=== PATIENT | female | born 1990 | race Caucasian/White ===

== ENCOUNTER 2016-09-23 16:46 | Emergency (ER) | payer OTHER ==
[2016-09-23 17:34] LABS: #Basophils 0.1 thou/uL (0.0-0.2); #Eosinphils 0.1 thou/uL (0.0-0.7); #Lymphocytes 2.4 thou/uL (1.20-3.40); #Monocytes 0.6 thou/uL (0.11-0.59); #Neutrophils 4.7 thou/uL (1.40-6.50); %Basophils 0.9 % (0.0-1.0); %Eosinophils 1.2 % (0.0-10.0); %Lymphocytes 30.6 % (21.0-51.0); %Monocytes 8.1 % (0.0-10.0); %Neutrophils 59.3 % (42.0-75.0); Hemoglobin 13.2 g/dL (12.0-16.0); Mean Corpuscular HGB CONC 33.1 g/dL (32.0-36.0); Mean Corpuscular Hemoglobin 30.5 pg (27.0-31.0); Mean Corpuscular Volume 92.3 fl (81.0-99.0); Mean Platelet Volume 9.5 fL (7.4-10.4); Platelet Count 239 thou/uL (130-400); RBC Distribution Width 12.7 % (11.5-14.5); Red Blood Cell (RBC) Count 4.33 mill/uL (4.20-5.40); White Blood Cell (WBC) Count 7.9 thou/uL (4.8-10.8)
[2016-09-23 17:44] LABS: PTT 26.5 SEC (22.9-36.1)
[2016-09-23 17:51] LABS: ALT (SGPT) 35 U/L (0-55); AST (SGOT) 23 U/L (5-34); Albumin 3.9 g/dL (3.5-5.0); Alkaline Phosphatase 56 U/L (40-150); Anion Gap 18 mmol/L (10-20); BUN (Urea Nitrogen) 7 mg/dL (7.0-18.7); Bilirubin, Total 0.6 mg/dL (0.2-1.2); Calc. Creatinine Clearance 0 mL/min (70-130); Calcium 9.3 mg/dL (7.8-10.44); Carbon Dioxide 20 mmol/L (22-29); Chloride 105 mmol/L (98-107); Estimated GFR-MDRD Greater than 90; Globulin 2.9 g/dL (2.4-3.5); Glucose 100 mg/dL (70-105); Potassium 4.1 mmol/L (3.5-5.1); Protein, Total 6.8 g/dL (6.0-8.3); Sodium 139 mmol/L (136-145)
--- NOTE | 2016-09-23 19:21 | ERRECORD ---
[facility] EMERGENCY RECORD HPI VAGINAL BLEEDING (17:12 SHAN) CHIEF COMPLAINT: Patient presents for evaluation of vaginal bleeding. HISTORIAN: History provided by patient, 8 weeks per patient; no tests yet done. TIME COURSE: Sudden onset of symptoms. ROS CONSTITUTIONAL: Negative constitutional review of systems, Historian denies chills, denies fever. (17:12 SHAN) EYES: Negative eye review of systems. (17:12 SHAN) ENT: Negative ears, nose, throat review of systems. (17:12 SHAN) CARDIOVASCULAR: Negative cardiovascular review of systems, Historian denies chest pain, denies palpitations. (17:12 SHAN) RESPIRATORY: Negative respiratory review of systems, Historian denies cough, denies shortness of breath. (17:12 SHAN) GI: Negative gastrointestinal review of systems, Historian denies abdominal pain, denies constipation, denies diarrhea. (17:12 SHAN) GENITOURINARY FEMALE: vaginal bleeding,. (17:17 SHAN) MUSCULOSKELETAL: Negative musculoskeletal review of systems. (17:12 SHAN) SKIN: Negative skin review of systems. (17:12 SHAN) NEUROLOGIC: Negative neurologic review of systems. (17:12 SHAN) ENDOCRINE: Negative endocrine review of systems. (17:12 SHAN) HEMO/LYMPHATIC: Normal hematologic/lymphatic system review. (17:12 SHAN) PSYCHIATRIC: Negative psychiatric review of systems. (17:12 SHAN) NOTES: All other ROS is negative except as listed in HPI. (17:12 SHAN) PAST MEDICAL HISTORY MEDICAL HISTORY: No past medical history. (FriSep 23, 2016 16:57 MDEB) FEMALE SURGICAL HISTORY: Patient has no surgical history. (FriSep 23, 2016 16:57 MDEB) PSYCHIATRIC HISTORY: Notes: DEPRESSION. (FriSep 23, 2016 16:57 MDEB) SOCIAL HISTORY: Patient denies alcohol use, Patient denies drug use, Patient currently uses tobacco, smokes cigarettes, daily, Patient smokes 1 pack per day. (FriSep 23, 2016 16:57 MDEB) NOTES: I have reviewed and agree with the PMH/PSxH/FamHx/SocHx obtained by the nurse. (17:12 SHAN) KNOWN ALLERGIES No Known Drug Allergies CURRENT MEDICATIONS (19:27 BGAL) : CAPSULE : Strength - 10 mg iron-400 mcg : ORAL Patient Dose: Unknown. &a-1R&a+25V*p+0X*a6277M*c202B*c15G*c2P*p-0X&a-25V&a+1R Name: Marielle Dumont : 1990 F26 MedRec: [id number] AcctNum: [id number] Prepared: FriSep 23, 2016 19:39 by Interface Page 1 of 3 pMD [facility] EMERGENCY RECORD VITAL SIGNS (16:53 MDEB) VITAL SIGNS: BP: 160/97, Pulse: 126, Resp: 20, Temp: 98.4 (Oral), Pain: 0, O2 sat: 97 on Room Air, Time: 09/23/2016 16:53. PHYSICAL EXAM (17:12 SHAN) CONSTITUTIONAL: Vital signs reviewed, Patient appears non toxic, Patient alert and oriented to person, place and time, Pt is in no apparent distress. HEAD: Head exam included findings of head atraumatic, normocephalic. EYES: Eye exam included findings of eyelids normal to inspection, Pupils equally round and reactive to light, Extraocular muscles intact. ENT: ENT exam normal, Nose exam normal, no nasal deformity, no bleeding from nares, Pharynx exam normal, Mouth exam normal, mucous membranes moist. NECK: Neck exam included findings of normal range of motion, Trachea midline. RESPIRATORY CHEST: Respiratory and chest exam normal, Breath sounds clear, No wheezing, No rales, Chest exam included findings of chest movement symmetrical, Chest expansion equal. CARDIOVASCULAR: Cardiovascular assessment normal, Cardiovascular exam included findings of heart rate regular rate and rhythm, Heart sounds normal. ABDOMEN FEMALE: Abdominal exam included findings of abdomen nontender, Bowel sounds normal, no mass, no pulsatile masses, no peritoneal signs. BACK: Back exam included findings of normal inspection, range of motion normal, no costovertebral angle tenderness. UPPER EXTREMITY: Upper extremity exam included findings of inspection normal, Range of motion normal. LOWER EXTREMITY: Lower extremity exam included findings of inspection normal, Range of motion normal. NEURO: Neuro exam findings include patient oriented to person, place and time, Speech normal, no focal motor deficits, no focal sensory deficits. SKIN: Skin exam included findings of skin warm, dry, and normal in color. LYMPHATIC: Lymphatic exam normal. PSYCHIATRIC: Psychiatric exam included findings of patient oriented to person place and time, Normal affect. DOCTOR NOTES TEXT: Adult female who states she is about 8 weeks along; started bleeding 'a lot' 30 minutes ago and placed a pad; was told by her mother, a nurse, to come to er. Still has same pad on which isn't yet saturated. Discussed that can not do ultrasound here today. Starting metabolic workup. (17:10 SHAN) pt continues to bleed bright red but no more clots. no tissue. no &a-1R&a+25V*p+0X*u0130L*c202B*c15G*c2P*p-0X&a-25V&a+1R Name: Marielle Dumont : 1990 F26 MedRec: [id number] AcctNum: [id number] Prepared: FriSep 23, 2016 19:39 by Interface Page 2 of 3 pMD [facility] EMERGENCY RECORD more cramping (was severe initially but gone now. needs US which we do not have now. will have to transfer for study. (19:07 LLDO) accepted by dr adams (sp?) for [facility]. (19:14 LLDO) SIGN OUT: Patient signed out to, Dr. Dr. Parrish. (18:00 SHAN) PATIENT PLAN: The patient requires a transfer and will be transferred. (19:07 LLDO) PROBLEM LIST No recorded problems DIAGNOSIS (19:17 LLDO) FINAL: PRIMARY: Vaginal bleeding, ADDITIONAL: HEMORRHAGE EARLY UNS. PRESCRIPTION No recorded prescriptions DISPOSITION PATIENT: Disposition Type: Transfer, Disposition: Transfer to [facility]. (19:17 LLDO) Patient left the department. (19:36 BGAL) Rodrigues: BGJR=OLIVER Zurita, Denice BERMEO=MD Shivani, Marcelino MELENDREZ=OLIVER Alexis, Denia SAUER=MD Lou, Se &a-1R&a+25V*p+0X*a9825L*c202B*c15G*c2P*p-0X&a-25V&a+1R Name: Marielle Dumont : 1990 F26 MedRec: [id number] AcctNum: [id number] Prepared: FriSep 23, 2016 19:39 by Interface Page 3 of 3 pMD MTDD
--- NOTE | 2016-09-23 19:28 | PICIS ---
[facility] EMERGENCY RECORD TRIAGE (FriSep 23, 2016 16:57 MDEB) PATIENT: NAME: Marielle Dumont, AGE: 26, GENDER: female, : Sat 1990, TIME OF GREET: FriSep 23, 2016 16:47, RACE: WHITE, ECODE BILLING MAP: [facility], SSN: [id number], Zip Code: [address], KG WEIGHT: 113.85, PHONE: , , , PERSON ID: [id number], PCP: [facility]. (FriSep 23, 2016 16:57 MDEB) TRIAGE NOTES: BLEEDING WITH UNCONFIRMED - PT ESTIMATES 7 WKS. (FriSep 23, 2016 16:57 MDEB) COMPLAINT: 7 WEEKS -BLEEDING. (FriSep 23, 2016 16:57 MDEB) ADMISSION: URGENCY: 3 Urgent, ADMISSION SOURCE: Home, TRANSPORT: Walk-in, BED: TRIAGE. (FriSep 23, 2016 16:57 MDEB) PAIN: Notes: DENIES AT THIS TIME. (FriSep 23, 2016 16:57 MDEB) TRIAGE SCREENING: Patient denies suicidal ideation, Patient denies presence of domestic violence. (FriSep 23, 2016 16:57 MDEB) LMP: Last menstrual period: 07/21/2016, Estimated conception 08/04/2016, Estimated due date 04/27/2017, Estimated age 9 weeks, 1 days, , P: 0, AB: 0. (FriSep 23, 2016 16:57 MDEB) PROVIDERS: TRIAGE NURSE: Denia Alexis RN. (FriSep 23, 2016 16:57 MDEB) VITAL SIGNS: BP 160/97, Pulse 126, Resp 20, Temp 98.4, (Oral), Pain 0, O2 Sat 97, on Room Air, Time 09/23/2016 16:53. (16:53 MDEB) KNOWN ALLERGIES No Known Drug Allergies CURRENT MEDICATIONS (19:27 BGAL) : CAPSULE : Strength - 10 mg iron-400 mcg : ORAL Patient Dose: Unknown. VITAL SIGNS (16:53 MDEB) VITAL SIGNS: BP: 160/97, Pulse: 126, Resp: 20, Temp: 98.4 (Oral), Pain: 0, O2 sat: 97 on Room Air, Time: 09/23/2016 16:53. NURSING ASSESSMENT: ABDOMEN (16:59 MDEB) CONSTITUTIONAL: Patient arrives ambulatory, Gait steady, History obtained from patient, Patient appears, anxious, uncomfortable, Patient cooperative, Patient alert, Oriented to person, place and time, Skin warm, Skin dry, Skin normal in color, Mucous membranes pink, Mucous membranes moist, Patient is well-groomed, Patient complains of BLEEDING WITH UNCONFIRMED , PT ESTIMATES HER LMP IS 07/21/2016. TODAY SHE WAS CRAMPING ET PASSED LARGE CLOT. PAIN: Patient rates pain as 0 out of 10. ABDOMEN: Abdomen assessment findings include abdomen symmetrical, Abdomen soft. LMP: : 1, Para: 0, Abortions: 0, Notes: &a-1R&a+25V*p+0X*h3508H*c202B*c15G*c2P*p-0X&a-25V&a+1R Name: Marielle Dumont : 1990 F26 MedRec: [id number] AcctNum: [id number] Prepared: FriSep 23, 2016 19:39 by Interface Page 1 of 6 pMD [facility] EMERGENCY RECORD UNCONFIRMED PREGNACY. GENITOURINARY FEMALE: Associated with vaginal bleeding, spotting, of bright red blood. NOTES: Emotional support needed and given, Patient tolerated procedure well. SAFETY: Side rails up, Cart/Stretcher in lowest position, Family at bedside, Call light within reach, Hospital ID band on. NURSING PROCEDURE: TRANSFER (19:34 BGAL) TRANSFER: Reason for transfer need for specialized care, Diagnosis: r/o eptopic, Accepting institution: [facility], Accepting physician: Zonia, Referring physician: Shivani, Transported by private vehicle, Report called to receiving facility, [facility], Bed assigned ER Bed. BELONGINGS: Belongings and valuables with patient at time of admission include:, Belongings remain with patient, Valuables remain with patient. SAFETY: Side rails up, Cart/Stretcher in lowest position, Family at bedside, Call light within reach, Hospital ID band on. ORDER DETAILS Order Name: CBC with Differential, Status: Active, Time: 17:08 09/23/2016, User: CAMACHO, - Ordered for: MD Blake Stanley, - Entered by: MD Blake Stanley - Mon Sep 23, 2016 17:08, - Quantity: 1, Order Name: Comprehensive Metabolic Panel, Status: Active, Time: 17:08 09/23/2016, User: CAMACHO, - Ordered for: MD Blake Stanley, - Entered by: MD Blake Stanley - Mon Sep 23, 2016 17:08, - Quantity: 1, Order Name: HCG, Total Quant, Status: Active, Time: 17:08 09/23/2016, User: CAMACHO, - Ordered for: MD Balke Stanley, - Entered by: MD Blake Stanley - Mon Sep 23, 2016 17:08, - Quantity: 1, Order Name: Protime with INR, Status: Active, Time: 17:08 09/23/2016, User: CAMACHO, - Ordered for: MD Blake Stanley, - Entered by: MD Blake Stanley - Mon Sep 23, 2016 17:08, - Quantity: 1, Order Name: PTT, Status: Active, Time: 17:08 09/23/2016, User: CAMACHO, - Ordered for: MD Blake Stanley, - Entered by: MD Blake Stanley - Mon Sep 23, 2016 17:08, - Quantity: 1, Order Name: SALINE LOCK, Status: Active, Time: 19:18 09/23/2016, User: ELVIE, - Ordered for: MD Parrish Lloyd, - Entered by: MD Parrish Lloyd - Ramses Sep 23, 2016 19:18, &a-1R&a+25V*p+0X*f3762Q*c202B*c15G*c2P*p-0X&a-25V&a+1R Name: Marielle Dumont : 1990 F26 MedRec: [id number] AcctNum: [id number] Prepared: FriSep 23, 2016 19:39 by Interface Page 2 of 6 pMD [facility] EMERGENCY RECORD - Quantity: 1, Order Name: Type & Rh, Status: Active, Time: 17:09 09/23/2016, User: CAMACHO, - Ordered for: MD Blake Stanley, - Entered by: MD Blake Stanley - FriSep 23, 2016 17:09, - Quantity: 1. HPI VAGINAL BLEEDING (17:12 SHAN) CHIEF COMPLAINT: Patient presents for evaluation of vaginal bleeding. HISTORIAN: History provided by patient, 8 weeks per patient; no tests yet done. TIME COURSE: Sudden onset of symptoms. ROS CONSTITUTIONAL: Negative constitutional review of systems, Historian denies chills, denies fever. (17:12 SHAN) EYES: Negative eye review of systems. (17:12 SHAN) ENT: Negative ears, nose, throat review of systems. (17:12 SHAN) CARDIOVASCULAR: Negative cardiovascular review of systems, Historian denies chest pain, denies palpitations. (17:12 SHAN) RESPIRATORY: Negative respiratory review of systems, Historian denies cough, denies shortness of breath. (17:12 SHAN) GI: Negative gastrointestinal review of systems, Historian denies abdominal pain, denies constipation, denies diarrhea. (17:12 SHAN) GENITOURINARY FEMALE: vaginal bleeding,. (17:17 SHAN) MUSCULOSKELETAL: Negative musculoskeletal review of systems. (17:12 SHAN) SKIN: Negative skin review of systems. (17:12 SHAN) NEUROLOGIC: Negative neurologic review of systems. (17:12 SHAN) ENDOCRINE: Negative endocrine review of systems. (17:12 SHAN) HEMO/LYMPHATIC: Normal hematologic/lymphatic system review. (17:12 SHAN) PSYCHIATRIC: Negative psychiatric review of systems. (17:12 SHAN) NOTES: All other ROS is negative except as listed in HPI. (17:12 SHAN) PAST MEDICAL HISTORY MEDICAL HISTORY: No past medical history. (FriSep 23, 2016 16:57 MDEB) FEMALE SURGICAL HISTORY: Patient has no surgical history. (FriSep 23, 2016 16:57 MDEB) PSYCHIATRIC HISTORY: Notes: DEPRESSION. (FriSep 23, 2016 16:57 MDEB) SOCIAL HISTORY: Patient denies alcohol use, Patient denies drug use, Patient currently uses tobacco, smokes cigarettes, daily, Patient smokes 1 pack per day. (FriSep 23, 2016 16:57 MDEB) NOTES: I have reviewed and agree with the PMH/PSxH/FamHx/SocHx obtained by the nurse. (17:12 SHAN) &a-1R&a+25V*p+0X*u1665E*c202B*c15G*c2P*p-0X&a-25V&a+1R Name: Marielle Dumont : 1990 F26 MedRec: [id number] AcctNum: [id number] Prepared: FriSep 23, 2016 19:39 by Interface Page 3 of 6 pMD [facility] EMERGENCY RECORD PHYSICAL EXAM (17:12 SHAN) CONSTITUTIONAL: Vital signs reviewed, Patient appears non toxic, Patient alert and oriented to person, place and time, Pt is in no apparent distress. HEAD: Head exam included findings of head atraumatic, normocephalic. EYES: Eye exam included findings of eyelids normal to inspection, Pupils equally round and reactive to light, Extraocular muscles intact. ENT: ENT exam normal, Nose exam normal, no nasal deformity, no bleeding from nares, Pharynx exam normal, Mouth exam normal, mucous membranes moist. NECK: Neck exam included findings of normal range of motion, Trachea midline. RESPIRATORY CHEST: Respiratory and chest exam normal, Breath sounds clear, No wheezing, No rales, Chest exam included findings of chest movement symmetrical, Chest expansion equal. CARDIOVASCULAR: Cardiovascular assessment normal, Cardiovascular exam included findings of heart rate regular rate and rhythm, Heart sounds normal. ABDOMEN FEMALE: Abdominal exam included findings of abdomen nontender, Bowel sounds normal, no mass, no pulsatile masses, no peritoneal signs. BACK: Back exam included findings of normal inspection, range of motion normal, no costovertebral angle tenderness. UPPER EXTREMITY: Upper extremity exam included findings of inspection normal, Range of motion normal. LOWER EXTREMITY: Lower extremity exam included findings of inspection normal, Range of motion normal. NEURO: Neuro exam findings include patient oriented to person, place and time, Speech normal, no focal motor deficits, no focal sensory deficits. SKIN: Skin exam included findings of skin warm, dry, and normal in color. LYMPHATIC: Lymphatic exam normal. PSYCHIATRIC: Psychiatric exam included findings of patient oriented to person place and time, Normal affect. EVENTS TRANSFER: Triage to Emergency Triage. (16:57 MDEB) Emergency Triage to Main ED -05. (16:59 MDEB) Removed from Emergency Main ED -05. (19:36 BGAL) DOCTOR NOTES TEXT: Adult female who states she is about 8 weeks along; started bleeding 'a lot' 30 minutes ago and placed a pad; was told by her mother, a nurse, to come to er. Still has same pad on which isn't yet saturated. Discussed that can not do ultrasound here today. Starting metabolic workup. (17:10 SHAN) pt continues to bleed bright red but no more clots. no tissue. no &a-1R&a+25V*p+0X*u2255T*c202B*c15G*c2P*p-0X&a-25V&a+1R Name: Marielle Dumont : 1990 F26 MedRec: [id number] AcctNum: [id number] Prepared: FriSep 23, 2016 19:39 by Interface Page 4 of 6 pMD [facility] EMERGENCY RECORD more cramping (was severe initially but gone now. needs US which we do not have now. will have to transfer for study. (19:07 LLDO) accepted by dr adams (sp?) for [facility]. (19:14 LLDO) SIGN OUT: Patient signed out to, Dr. Dr. Parrish. (18:00 SHAN) PATIENT PLAN: The patient requires a transfer and will be transferred. (19:07 LLDO) PROBLEM LIST No recorded problems DIAGNOSIS (19:17 LLDO) FINAL: PRIMARY: Vaginal bleeding, ADDITIONAL: HEMORRHAGE EARLY UNS. DISPOSITION PATIENT: Disposition Type: Transfer, Disposition: Transfer to [facility]. (19:17 LLDO) Patient left the department. (19:36 BGAL) PRESCRIPTION No recorded prescriptions IMAGING *MEMORANDUM OF TRANSFER: Image captured from scanner. (19:22 AGAN) EMS TRANSPORT ORDERS: Image captured from scanner. (19:23 AGAN) TRANSFER CONSENT: Image captured from scanner. (19:27 BGAL) ADMIN (19:17 LLDO) DIGITAL SIGNATURE: MD Parrish Lloyd. RESULTS (17:39 SHAN) LABORATORY: CBC with Differential Collection DT: FriSep 23, 2016 17:28, White Blood Cell (WBC) Count 7.9 thou/uL, Range (4.8-10.8), Red Blood Cell (RBC) Count 4.33 mill/uL, Range (4.20-5.40), Hemoglobin 13.2 g/dL, Range (12.0-16.0), Hematocrit 39.9 %, Range (36.0-47.0), Mean Corpuscular Volume 92.3 fl, Range (81.0-99.0), Mean Corpuscular Hemoglobin 30.5 pg, Range (27.0-31.0), Mean Corpuscular HGB CONC 33.1 g/dL, Range (32.0-36.0), RBC Distribution Width 12.7 %, Range (11.5-14.5), Platelet Count 239 thou/uL, Range (130-400), Mean Platelet Volume 9.5 fL, Range (7.4-10.4), %Neutrophils 59.3 %, Range (42.0-75.0), %Lymphocytes 30.6 %, Range (21.0-51.0), %Monocytes 8.1 %, Range (0.0-10.0), %Eosinophils 1.2 %, Range (0.0-10.0), %Basophils 0.9 %, Range (0.0-1.0), #Neutrophils 4.7 thou/uL, Range (1.40-6.50), &a-1R&a+25V*p+0X*z6450R*c202B*c15G*c2P*p-0X&a-25V&a+1R Name: Marielle Dumont : 1990 F26 MedRec: [id number] AcctNum: [id number] Prepared: FriSep 23, 2016 19:39 by Interface Page 5 of 6 pMD [facility] EMERGENCY RECORD #Lymphocytes 2.4 thou/uL, Range (1.20-3.40), *#Monocytes 0.6 - H thou/uL, Range (0.11-0.59), #Eosinphils 0.1 thou/uL, Range (0.0-0.7), #Basophils 0.1 thou/uL, Range (0.0-0.2). Rodrigues: NGUYỄN=OLIVER Cerrato, Florencio GUIDRY=OLIVER Zurita, Denice BERMEO=MD Shivani, Marcelino MELENDREZ=OLIVER Alexis, Denia SAUER=MD Lou, Se &a-1R&a+25V*p+0X*s3196E*c202B*c15G*c2P*p-0X&a-25V&a+1R Name: Marielle Dumont Tina : 1990 F26 MedRec: [id number] AcctNum: [id number] Prepared: [facility] Sep 23, 2016 19:39 by Interface Page 6 of 6 pMD MTDD
== END 2016-09-23 19:28 | disposition short-term general hospital (02) ==
LOC: MADERS 16:46
DX: O20.9 Hemorrhage in early pregnancy, unspecified (principal); Z3A.09 9 weeks gestation of pregnancy
CPT/HCPCS: 80053; 84702; 85025; 85610; 85730; 86900; 86901; 99284